=== PATIENT | male | born 1975 | race Caucasian/White ===

== ENCOUNTER → 2021-03-08 | Outpatient (CLI) | payer OTHER ==
[2021-03-08 19:31] LABS: HEMOGLOBIN 13.7 gm/dl (14.0-17.5); RED BLOOD COUNT 4.67 M/UL (4.20-5.50); WHITE BLOOD COUNT 5.3 K/UL (4.5-11.0)
[2021-03-08 19:59] LABS: BUN/CREATININE RATIO 12 (0-10)
[2021-03-11 07:11] LABS: QUANTIFERON MITOGEN VALUE >10.00 IU/mL (.); QUANTIFERON NIL VALUE 0.11 IU/mL (.); QUANTIFERON TB1 AG VALUE 0.15 IU/mL (.); QUANTIFERON TB2 AG VALUE 0.17 IU/mL (.); QUANTIFERON-TB GOLD PLUS Negative (Negative)
== END ==
LOC: LAB 16:09
PROVIDERS: Dermatology
DX: L40.0 Psoriasis vulgaris (principal); L40.50 Arthropathic psoriasis, unspecified
CPT/HCPCS: 36415; 80053; 80076; 85027

== ENCOUNTER → 2021-08-11 | Outpatient (CLI) | payer OTHER ==
[2021-08-11 17:15] LABS: HEMOGLOBIN 13.9 gm/dl (14.0-17.5); RED BLOOD COUNT 4.56 M/UL (4.20-5.50); WHITE BLOOD COUNT 6.5 K/UL (4.5-11.0)
[2021-08-11 17:38] LABS: BUN/CREATININE RATIO 13 (0-10)
== END ==
LOC: LAB 16:47
PROVIDERS: Dermatology
DX: J43.9 Emphysema, unspecified (principal); L40.0 Psoriasis vulgaris; L40.1 Generalized pustular psoriasis; R91.8 Other nonspecific abnormal finding of lung field
CPT/HCPCS: 36415; 71046; 80053; 80076; 85027